=== PATIENT | female | born 1985 | race Caucasian/White ===

== ENCOUNTER 2021-05-06 13:04 | Emergency (ER) | payer OTHER, SELFPAY ==
[2021-05-06 13:13] VITALS: BP 120/90; PULSE 81; RESP 16; TEMP 37.4; O2SAT 100
--- NOTE | 2021-05-06 13:28 | ED.GENADULT ---
HPI - General Adult General Chief complaint: Upper Respiratory Infection Stated complaint: sore throat/nasal congestion Source: patient Mode of arrival: ambulatory Limitations: no limitations History of Present Illness HPI narrative: 35 y/o female. PMH includes: None reported. Presents to [facility] today with acute complaints of nasal congestion, purulent nasal discharge, throat irritation, as well as bilateral otalgia for the past 1 week. She reports her manifestations to have been worsening despite home OTC remedies. She denies fever, chills, myalgia. Non-productive cough, without dyspnea, wheezing. No N/V. Client had been Covid tested at work 48 hours ago with negative results, and declines need for additional viral testing today. She is concerned that she may need antibiotic due to her length of ongoing symptoms, and is leaving for family vacation in 48 hours. She is without additional acute complaints of illness upon exam. Related Data Allergies Allergy/AdvReac Type Severity Reaction Status Date / Time No Known Allergies Allergy Verified 02/19/21 08:16 Review of Systems Review of Systems: Narrative: CONSTITUTIONAL: Denies fever, chills, sweats. EYES: Denies visual changes, redness, discharge. ENT: Positive rhinorrhea, congestion, otalgia. No sore throat. CARDIOVASCULAR: Denies chest pain, palpitations, edema. RESPIRATORY: Non-productive cough. No dyspnea, wheezing, cough GASTROINTESTINAL: Denies abdominal pain, nausea, vomiting, diarrhea. GENITOURINARY: Denies dysuria, hematuria, abnormal discharge SKIN: Denies rash or itching. MUSCULOSKELETAL: Denies acute back pain, joint pain, or myalgia. NEUROLOGIC: Denies numbness, or focal weakness. PSYCHIATRIC: Denies anxiety or depression. All systems reviewed & are unremarkable except as noted in HPI and below [facility] Past Medical History Medical History High cholesterol Surgical History Surgical History [place] teeth removed Family History Family History Father Hypertension Grandparent Cancer of kidney Ovarian cancer Social History Social History Smoking status: Never smoker Alcohol intake: current Drinks per week: 3 Exam Narrative: Exam Narrative: GENERAL: This is a well-nourished, well-developed patient, in no apparent distress. HEAD: normocephalic, atraumatic. EYES: PERRL. Sclera clear/white. EARS: External ears normal. Auditory canals are mildly erythematous, LT > burdensome than RT, without drainage. TMs normal without perforation. NOSE: External nose normal. There is purulent nasal discharge and crusting to exterior nares. Nares are patent and without obstruction. THROAT: Mucous membranes moist. Posterior pharynx erythematous, no exudates. NECK: Neck supple, non-tender without lymphadenopathy, masses or thyromegaly. CARDIOVASCULAR: Regular rate and rhythm without murmurs, gallops, or rubs. RESPIRATORY: Upper airway Rhonchi, cleared with cough. Breath sounds equal bilaterally. No wheezes or rales. GASTROINTESTINAL: Abdomen soft, non-tender, nondistended. No guarding. SKIN: warm, intact with no suspicious lesions or rash, good texture and turgor. NEURO: No obvious focal neurologic abnormalities. Steady gait. Course Vital Signs Vital signs: Vital Signs Temperature 37.4 C 05/06/21 13:13 Pulse Rate 81 05/06/21 13:13 Respiratory Rate 16 05/06/21 13:13 Blood Pressure 120/90 05/06/21 13:13 Pulse Oximetry 100 05/06/21 13:13 Temperature 37.4 C 05/06/21 13:13 Pulse Rate 81 05/06/21 13:13 Respiratory Rate 16 05/06/21 13:13 Blood Pressure 120/90 05/06/21 13:13 Pulse Oximetry 100 05/06/21 13:13 Medical Decision Making MDM Narrative Medical decision making narrative: -Symptom
== END 2021-05-06 13:34 | disposition home or self-care (01) ==
PROVIDERS: Emergency Provider Nurse Practitioner Adult Health
DX: J06.9 Acute upper respiratory infection, unspecified (principal); E78.00 Pure hypercholesterolemia, unspecified
CPT/HCPCS: 99213; G0463

== ENCOUNTER → 2021-10-08 17:06 | Outpatient (NON) | payer OTHER, SELFPAY ==
[2020-05-24 18:31] LABS: SARS-CoV-2 RNA PCR Negative
== END | disposition home or self-care (01) ==
PROVIDERS: PCP Family Medicine; Visit Provider Family Medicine
DX: R68.89 Other general symptoms and signs (principal); Z20.828 Contact with and (suspected) exposure to other viral communicable diseases
CPT/HCPCS: 87635; C9803; U0003

== ENCOUNTER 2022-12-20 10:03 | Outpatient (CLI) | payer OTHER, SELFPAY ==
[2022-12-20 11:09] LABS: Alanine Aminotransferase 21 U/L (6-35); Alkaline Phosphatase 76 U/L (38-126); Anion Gap 6 mmol/L (8-16); Aspartate Amino Transferase 21 U/L (14-36); Bilirubin,Total 0.4 mg/dL (0.2-1.3); Blood Urea Nitrogen 11 mg/dL (7-17); Calcium 8.8 mg/dL (8.4-10.2); Carbon Dioxide 25 mmol/L (22-30); Chloride 108 mmol/L (98-107); Cholesterol 193 mg/dL (0-200); Estimated Glomerular Filt Rate > 60; Glucose 96 mg/dL (65-110); HDL Direct 50 mg/dL; Sodium 139 mmol/L (137-145); Triglycerides 79 mg/dL (<150)
[2022-12-20 11:19] LABS: LDL Cholesterol Direct 97 mg/dL
== END 2022-12-20 10:04 | disposition home or self-care (01) ==
LOC: ANHLAB 10:04
PROVIDERS: PCP Family Medicine; Visit Provider Family Medicine
DX: Z51.81 Encounter for therapeutic drug level monitoring (principal); Z79.899 Other long term (current) drug therapy; E66.3 Overweight
CPT/HCPCS: 36415; 80053; 80061

== ENCOUNTER 2024-01-17 09:13 | Outpatient (CLI) | payer OTHER, SELFPAY ==
--- NOTE | ~2024-01-17 | US_ITS ---
EXAMINATION: US OB <= 14 weeks fetus DATE: 01/17/2024 09:34 INDICATION: with inconclusive viability TECHNIQUE: Real-time pelvic ultrasound utilizing transabdominal probe was performed. The greta babcock radiologist was not present for the study. COMPARISON: None. FINDINGS: The uterus measures 10.4 x 6.0 x 6.0 cm. There is an intrauterine gestational sac. A yolk sac and fe salina pole are identified. The crown rump length measures 2.3 cm, which correlates with an estimated ge stational age of 9 weeks and 0 days. heart motion is identified measuring 171 beats per minute (bpm) by M-mode Doppler. The right ovary measures 2.6 x 1.9 x 1.9 cm. The left ovary measures 2.7 x 2.4 x 1.7 cm. There is no free fluid in the pelvis. IMPRESSION: 1. Single living fetus with heart rate of 171 bpm. 2. Gestational age by ultrasound of 9 weeks 0 day(s) +/- 6 day(s) with ultrasound estimated date of delivery (MINA) of 08/21/2024. Reviewed, dictated and finalized at location L. IMPRESSION: 1. Single living fetus with heart rate of 171 bpm. 2. Gestational age by ultrasound of 9 weeks 0 day(s) +/- 6 day(s) with ultraso und estimated date of delivery (MINA) of 08/21/2024.
== END 2024-01-17 09:14 ==
LOC: GOSHIMG 09:14
PROVIDERS: PCP Family Medicine; Visit Provider Nurse Practitioner Family
DX: O36.80X0 Pregnancy with inconclusive fetal viability, not applicable or unspecified (principal); Z3A.09 9 weeks gestation of pregnancy
CPT/HCPCS: 76801

== ENCOUNTER 2024-02-10 09:01 | Outpatient (CLI) | payer OTHER, SELFPAY ==
[2024-02-10 13:28] LABS: Hematocrit 41.1 % (37.0-47.0); Hemoglobin 13.1 g/dL (12.0-15.0); Mean Corpuscular HGB Conc 31.9 g/dl (32-36); Mean Corpuscular Hemoglobin 29.8 pg (26-34); Mean Corpuscular Volume 93.6 fl (80-100); Mean Platelet Volume 10.8 fl (7.4-10.4); Platelet Count Result 240 k/mm3 (150-375); Red Blood Count 4.39 M/mm3 (4.2-5.4); Red Cell Distribution Width 12.4 % (11.5-14.5); White Blood Count 9.8 K/mm3 (4.5-10.0)
[2024-02-10 13:36] LABS: Alanine Aminotransferase 20 U/L (6-35); Albumin Level 4.2 g/dL (3.5-5.1); Alkaline Phosphatase 70 U/L (38-126); Anion Gap 7 mmol/L (4-12); Aspartate Amino Transferase 29 U/L (14-36); Bilirubin,Total 0.4 mg/dL (0.2-1.3); Blood Urea Nitrogen 8 mg/dL (7-17); Calcium 9.5 mg/dL (8.4-10.2); Carbon Dioxide 24 mmol/L (22-30); Chloride 105 mmol/L (98-107); Cholesterol 222 mg/dL (0-200); Estimated Glomerular Filt Rate > 60; Glucose 82 mg/dL (65-110); HDL Direct 69 mg/dL; Potassium 3.9 mmol/L (3.4-5.0); Sodium 136 mmol/L (137-145); Triglycerides 115 mg/dL (<150)
[2024-02-10 13:46] LABS: LDL Cholesterol Direct 125 mg/dL
[2024-02-10 14:10] LABS: HIV 1/2 Ab P24 Ag Result Negative (Negative)
[2024-02-10 14:17] LABS: Appearance Urine Cloudy (Clear); Bacteria Urine 1+ /hpf; Bilirubin Urine Negative (Negative); Blood Urine Negative (Negative); Color Urine Yellow (Yellow); Glucose Urine UA Negative (Negative); Ketones Urine Trace mg/dL (Negative); Leukocyte Esterase Ur Negative LEU/UL (Negative); Need Manual Microscopic Reviewed; Nitrate Urine Negative (Negative); Non Pathogenic Casts 0-2; Protein Urine Negative (Negative); RBC Urine 0-2 /hpf (0-2); Specific Grav Ur 1.023 (1.001-1.035); Squamous Epithelial Cell Urine Moderate /hpf (Few); pH Urine 6.5 (5.0-9.0)
[2024-02-10 14:30] LABS: Add Urine Microscopic? YES
[2024-02-10 15:11] LABS: Hepatitis B Surface Antigen Negative (Negative); Rubella IgG Antibody 5.4 IU/ML
[2024-02-10 15:23] LABS: Hepatitis C Virus Antibody Negative (Negative)
[2024-02-10 18:21] LABS: Thyroid Stimulating Hormone 0.892 uIU/mL (0.465-4.680)
[2024-02-13 15:10] LABS: Rapid Plasma Reagin Non-Reactive (NonReactive)
[2024-02-13 17:32] LABS: Hemoglobin 13.3 g/dL (11.7-15.5); MCV 92.3 fL (80.0-100.0); RDW 12.4 % (11.0-15.0); Red Blood Cell Count 4.44 Mill/uL (3.80-5.10)
== END 2024-02-10 09:02 | disposition home or self-care (01) ==
PROVIDERS: Nurse Practitioner Family; PCP Family Medicine; Visit Provider Family Medicine
DX: Z34.90 Encounter for supervision of normal pregnancy, unspecified, unspecified trimester (principal); Z3A.00 Weeks of gestation of pregnancy not specified; E66.3 Overweight; Z79.899 Other long term (current) drug therapy
CPT/HCPCS: 36415; 80053; 80061; 81001; 83021; 84443; 85027; 86592; 86703; 86762; 86787; 86803; 86850; 86900; 86901; 87086; 87340; G0432

== ENCOUNTER 2024-05-09 07:37 | Outpatient (CLI) | payer OTHER, SELFPAY ==
[2024-05-09 08:59] LABS: Basophils Percent Auto 0.4 % (0.2-1.2); Eosinophils Absolute Auto 0.5 K/mm3 (0-0.3); Eosinophils Percent Auto 5.1 % (0-4.4); Hematocrit 35.4 % (37.0-47.0); Hemoglobin 11.9 g/dL (12.0-15.0); Immature Granulocyte Absolute 0.03 K/mm3 (0.00-0.031); Immature Granulocyte Percent A 0.3 % (0-0.5); Lymphocytes Absolute Auto 1.75 K/mm3 (0.9-3.2); Lymphocytes Percent Auto 16.7 % (18.3-44.2); Mean Corpuscular HGB Conc 33.6 g/dl (32-36); Mean Corpuscular Hemoglobin 30.2 pg (26-34); Mean Corpuscular Volume 89.8 fl (80-100); Mean Platelet Volume 9.9 fl (7.4-10.4); Monocytes Absolute Auto 0.7 K/mm3 (0.1-0.6); Monocytes Percent Auto 6.4 % (2.6-8.5); Neutrophils Absolute Auto 7.5 K/mm3 (1.3-6.7); Neutrophils Percent Auto 71.1 % (45.5-73.1); Platelet Count Result 214 k/mm3 (150-375); Red Blood Count 3.94 M/mm3 (4.2-5.4); Red Cell Distribution Width 12.7 % (11.5-14.5); White Blood Count 10.5 K/mm3 (4.5-10.0)
[2024-05-09 09:09] LABS: Glucose 1 Hour PP 50gm Dose 140 mg/dL
[2024-05-11] MEDS: RHO(D) IMMUNE GLOBULIN 300 MCG/2 ML SYRINGE IM (11:20)
== END 2024-05-09 07:38 | disposition home or self-care (01) ==
LOC: ANHLAB 07:39
PROVIDERS: PCP Family Medicine; Visit Provider Nurse Practitioner Family
DX: Z34.00 Encounter for supervision of normal first pregnancy, unspecified trimester (principal)
CPT/HCPCS: 36415; 82947; 85025; 85461; 86850; 86900; 86901; 90384; 96372; J2790

== ENCOUNTER 2024-05-11 07:19 | Outpatient (CLI) | payer OTHER, SELFPAY ==
[2024-05-11 07:51] LABS: Glucose Fasting Gestational 87 mg/dL (>/=95)
[2024-05-11 09:33] LABS: Glucose 1 Hour Gest 159 mg/dL (>/=180)
[2024-05-11 10:12] LABS: Glucose 2 Hour Gest 121 mg/dL (>/= 155)
[2024-05-11 11:28] LABS: Glucose 3 Hour Gest 100 mg/dL (>/=140)
== END 2024-05-11 07:20 | disposition home or self-care (01) ==
LOC: ANHLAB 07:21
PROVIDERS: PCP Family Medicine; Visit Provider Nurse Practitioner Family
DX: O99.810 Abnormal glucose complicating pregnancy (principal); Z3A.00 Weeks of gestation of pregnancy not specified
CPT/HCPCS: 36415; 82951; 82952; 90384; 96372; J2790

== ENCOUNTER 2024-06-21 15:43 | Outpatient (CLI) | payer OTHER, SELFPAY ==
[2024-06-21 16:11] LABS: Basophils Percent Auto 0.3 % (0.2-1.2); Eosinophils Absolute Auto 0.4 K/mm3 (0-0.3); Eosinophils Percent Auto 4.2 % (0-4.4); Hemoglobin 11.4 g/dL (12.0-15.0); Immature Granulocyte Absolute 0.04 K/mm3 (0.00-0.031); Immature Granulocyte Percent A 0.4 % (0-0.5); Lymphocytes Absolute Auto 1.98 K/mm3 (0.9-3.2); Lymphocytes Percent Auto 19.5 % (18.3-44.2); Mean Corpuscular HGB Conc 32.6 g/dl (32-36); Mean Corpuscular Hemoglobin 29.8 pg (26-34); Mean Corpuscular Volume 91.4 fl (80-100); Mean Platelet Volume 10.2 fl (7.4-10.4); Monocytes Absolute Auto 0.8 K/mm3 (0.1-0.6); Monocytes Percent Auto 8.3 % (2.6-8.5); Neutrophils Absolute Auto 6.8 K/mm3 (1.3-6.7); Neutrophils Percent Auto 67.3 % (45.5-73.1); Platelet Count Result 226 k/mm3 (150-375); Red Blood Count 3.83 M/mm3 (4.2-5.4); Red Cell Distribution Width 12.7 % (11.5-14.5); White Blood Count 10.1 K/mm3 (4.5-10.0)
[2024-06-21 17:04] LABS: HIV 1/2 Ab P24 Ag Result Negative (Negative)
[2024-06-22 07:33] LABS: Rapid Plasma Reagin Non-Reactive (NonReactive)
== END 2024-06-21 15:44 | disposition home or self-care (01) ==
LOC: ANHLAB 15:45
PROVIDERS: PCP Family Medicine; Visit Provider Obstetrics & Gynecology
DX: Z34.90 Encounter for supervision of normal pregnancy, unspecified, unspecified trimester (principal); Z3A.00 Weeks of gestation of pregnancy not specified
CPT/HCPCS: 36415; 85025; 86592; 86703; G0432

== ENCOUNTER 2024-08-14 12:09 | Outpatient (RCR) | payer OTHER, SELFPAY ==
--- NOTE | ~2024-08-14 | US_ITS ---
EXAMINATION: US OB limited DATE: 08/14/2024 13:18 INDICATION: Advanced maternal age. Third trimester. TECHNIQUE: Real-time ultrasound of the pelvis was performed. COMPARISON: Ultrasound 01/17/2024 FINDINGS: There is a single fetus in vertex presentation. The placenta is on the right. heart rate is 16 5 beats per minute (bpm). The amniotic fluid index is 8.1 cm, which is normal. The fetus demonstrates bilateral hydroceles. IMPRESSION: 1. Single living fetus in vertex presentation. Reviewed, dictated and finalized at location A.
[2024-08-14 13:25] VITALS: BP 116/70; PULSE 81
== END 2024-11-12 23:59 | disposition home or self-care (01) ==
LOC: ANHOBOP 12:09
PROVIDERS: PCP Family Medicine; Visit Provider Obstetrics & Gynecology
DX: O09.513 Supervision of elderly primigravida, third trimester (principal); Z3A.00 Weeks of gestation of pregnancy not specified
CPT/HCPCS: 59025; 76815

== ENCOUNTER 2024-08-15 08:27 | Inpatient (IN) | payer OTHER, SELFPAY ==
[2024-08-15] VITALS (171 sets, daily range): BP systolic 87–132; BP diastolic 34–92; PULSE 30–155; RESP 16–20; TEMP 36.4–37.1; O2SAT 83–100; BMI 33.2
[2024-08-15 09:17] LABS: Basophils Percent Auto 0.5 % (0.2-1.2); Eosinophils Absolute Auto 0.4 K/mm3 (0-0.3); Eosinophils Percent Auto 4.4 % (0-4.4); Hemoglobin 11.4 g/dL (12.0-15.0); Immature Granulocyte Absolute 0.03 K/mm3 (0.00-0.031); Immature Granulocyte Percent A 0.4 % (0-0.5); Lymphocytes Absolute Auto 1.83 K/mm3 (0.9-3.2); Lymphocytes Percent Auto 21.6 % (18.3-44.2); Mean Corpuscular HGB Conc 32.6 g/dl (32-36); Mean Corpuscular Volume 89.1 fl (80-100); Mean Platelet Volume 10.6 fl (7.4-10.4); Monocytes Absolute Auto 0.7 K/mm3 (0.1-0.6); Neutrophils Absolute Auto 5.5 K/mm3 (1.3-6.7); Neutrophils Percent Auto 65.1 % (45.5-73.1); Platelet Count Result 205 k/mm3 (150-375); Red Blood Count 3.93 M/mm3 (4.2-5.4); White Blood Count 8.5 K/mm3 (4.5-10.0)
[2024-08-15] MEDS: LACTATED RINGERS 1,000 ML 999 ML IV CONT (09:25)
--- NOTE | 2024-08-15 09:31 | WPDANESEPP ---
Anes - Eval Pre Procedure Procedure: Labor epidural Date/Time: 08/15/24 09:31 Surgeon: Rashaun Preop Diagnosis: Pain during labor Pre Op Diagnosis: labor Patient Data Age: 38 Gender: F Height: Weight: Last Vital Signs Pulse 111 H 08/15/24 09:31 BP 121/34 L 08/15/24 09:31 Allergies Allergy/AdvReac Type Severity Reaction Status Date / Time No Known Allergies Allergy Verified 08/14/24 08:26 Home Medications Medication Instructions Recorded Confirmed Type vit no.95-ferrous 1 tablet PO DAILY 08/15/24 08/15/24 History fumarate 28 mg-folic acid 800 mcg tablet () Laboratory Tests 08/15/24 09:09 WBC 8.5 K/mm3 (4.5-10.0) RBC 3.93 L M/mm3 (4.2-5.4) Hgb 11.4 L g/dL (12.0-15.0) Hct 35.0 L % (37.0-47.0) MCV 89.1 fl (80-100) MCH 29.0 pg (26-34) MCHC 32.6 g/dl (32-36) RDW 14.0 % (11.5-14.5) Plt Count 205 k/mm3 (150-375) MPV 10.6 H fl (7.4-10.4) Immature Gran % (Auto) 0.4 % (0-0.5) Neut % (Auto) 65.1 % (45.5-73.1) Lymph % (Auto) 21.6 % (18.3-44.2) [place] % (Auto) 8.0 % (2.6-8.5) Eos % (Auto) 4.4 % (0-4.4) Baso % (Auto) 0.5 % (0.2-1.2) Lymph # (Auto) 1.83 K/mm3 (0.9-3.2) [place] # (Auto) 0.7 H K/mm3 (0.1-0.6) Eos # (Auto) 0.4 H K/mm3 (0-0.3) Baso # (Auto) 0.0 K/mm3 (0.0-0.1) Abs Immat Gran (auto) 0.03 K/mm3 (0.00-0.031) Absolute Neuts (auto) 5.5 K/mm3 (1.3-6.7) Absolute Nucleated RBC 0.000 K/mm3 (0.0-0.012) Nucleated RBC % 0.0 % (0.0-0.2) RPR Pending HIV 1&2 Ab/P24 Ag 4thGn Pending Patient hx anesthesia problems: none Family hx anesthesia problems: none Results Review: All pre-operative results and documents have been reviewed as part of the pre-operative evaluation. [facility] Past Medical History Medical History High cholesterol Surgical History Surgical History [place] teeth removed Family History Family History Father Hypertension Grandparent Ovarian cancer Cancer of kidney Sibling Testicular cancer Social History Social History Smoking status: Never smoker Alcohol intake: current Drinks per week: 3 Substance use: never Lack of Transportation: No Lack of Food: Never True Current Housing: I Have Housing Concerned About Future Housing: No Difficulty Paying Gas/Electric Bills: No Difficulty Paying for Meds: No Currently Unemployed: No Education: Master's Degree or Higher Difficulty w/ Childcare or Family Care: No Living arrangements: alone Occupation/Education: occupation Gender identity (if verbalized by the patient): Female Sexual Orientation (if Verbalized by the Patient): Straight or Heterosexual Spiritual care concerns: No Exam Day of Procedure 08/15/24 09:31 Patient weight: overweight Heart: regular rate and rhythm Lungs: clear to auscultation Airway: Mallampati scale class II Neurological: alert and oriented
--- NOTE | 2024-08-15 09:34 | LDADM ---
This patient, Geovany Ascencio, was admitted to Labor/Delivery/Recovery 105 on 08/15/24 at 08:27. Plans for labor, pain management and were discussed with patient. Patient/family oriented to hospital policies and general routines including ID bracelet, bed and alarms, visiting hours, pain management, procedures, bathroom and other care routines, personal items, smoking policy, room service/diet and guest tray routines, security routines, and visiting hours. Patient/Family are encouraged to report perceived risks to care and to ask questions if they do not understand what they are told or what they should do. See OBIX for further documentation.
[2024-08-15] MEDS: LACTATED RINGERS 1,000 ML 125 ML IV CONT (10:05)
[2024-08-15 10:16] LABS: HIV 1/2 Ab P24 Ag Result Negative (Negative)
[2024-08-15 10:56] LABS: Rapid Plasma Reagin Non-Reactive (NonReactive)
--- NOTE | 2024-08-15 12:39 | PM.IMHP ---
H&P: HPI History of Present Illness Date/Time: 08/15/24 12:39 Chief Complaint: Contractions Narrative: 38-year-old G0 at 39 weeks presented to Labor and delivery with complaints of contractions regular since 5:45 a.m.. On admission to Labor and delivery she was 5 cm lindsey every 3-4 minutes. Denies leaking of fluid. course significant for advanced maternal age. Labs reviewed. GBS negative. Rh negative. Review of Systems Review of Systems: All systems reviewed & are unremarkable except as noted in HPI and below Constitutional: Constitutional: Reports no additional constitutional complaints and Denies headache(s) Eyes: Eyes: Denies spots in vision ENT: Reports system reviewed and no additional complaints, except as documented and Denies headache(s) Cardiovascular: Cardiovascular: Denies chest pain and Denies dyspnea Respiratory: Respiratory: Denies dyspnea Gastrointestinal: Gastrointestinal: Reports no additional gastrointestinal complaints Genitourinary: Genitourinary: Reports amenorrhea Musculoskeletal: Musculoskeletal: Reports no additional musculoskeletal complaints Integumentary/Breasts: Skin/Breast: Denies breast mass and Denies rash Neurologic: Denies headache(s) Psychiatric: Psychiatric: Reports no additional psychiatric complaints [facility] Past Medical History Medical History (Updated 08/15/24 @ 12:41 by Dylan Rodney MD) High cholesterol Surgical History Surgical History [place] teeth removed Family History Family History Father Hypertension Grandparent Ovarian cancer Cancer of kidney Sibling Testicular cancer Social History Social History Smoking status: Never smoker Second hand tobacco smoke exposure: No Alcohol intake: current Drinks per week: 3 Substance use: never Do You Feel Safe in your Home?: Yes Lack of Transportation: No Lack of Food: Never True Current Housing: I Have Housing Concerned About Future Housing: No Difficulty Paying Gas/Electric Bills: No Difficulty Paying for Meds: No Currently Unemployed: No Education: Master's Degree or Higher Difficulty w/ Childcare or Family Care: No Living arrangements: alone Occupation/Education: occupation Gender identity (if verbalized by the patient): Female Sexual Orientation (if Verbalized by the Patient): Straight or Heterosexual Spiritual care concerns: No Meds Home Medications and Allergies Home Medications Medication Instructions Recorded Confirmed Type vit no.95-ferrous 1 tablet PO DAILY 08/15/24 08/15/24 History fumarate 28 mg-folic acid 800 mcg tablet () Allergies Allergy/AdvReac Type Severity Reaction Status Date / Time No Known Allergies Allergy Verified 08/14/24 08:26 Vital Signs Vital Signs - 24 hr 08/15/24 08:50 08/15/24 09:00 08/15/24 09:30 Temperature Pulse Rate 69 81 111 H Respiratory Rate Blood Pressure 114/81 116/75 121/34 L Pulse Oximetry Oxygen Delivery 08/15/24 09:30 08/15/24 09:30 08/15/24 09:32 Temperature Pulse Rate 69 70 Respiratory Rate Blood Pressure 125/80 110/74 Pulse Oximetry Oxygen Delivery 08/15/24 09:54 08/15/24 09:59 08/15/24 10:00 Temperature Pulse Rate 75 Respiratory Rate Blood Pressure 127/83 Pulse Oximetry 100 100 Oxygen Delivery 08/15/24 10:03 08/15/24 10:04 08/15/24 10:06 Temperature Pulse Rate 81 73 70 Respiratory Rate Blood Pressure 132/89 131/70 122/75 Pulse Oximetry 100 Oxygen Delivery 08/15/24 10:09 08/15/24 10:12 08/15/24 10:14 Temperature Pulse Rate 71 83 Respiratory Rate Blood Pressure 121/78 124/83 Pulse Oximetry 98 100 Oxygen Delivery 08/15/24 10:15 08/15/24 10:18 08/15/24 10:19 Temperature
--- NOTE | 2024-08-15 12:41 | P.PNOB_ITS ---
OB - PN: Subj Subjective Date/time seen: 08/15/24 Cat 1, tracing, fht 125-130, cervix 7/90/-1 AROM small amount blood tinged fluid. OB - PN: Obj Data Labs 08/15/24 09:09 Labs: Laboratory Results - last 24 hr 08/15/24 09:09 WBC 8.5 RBC 3.93 L Hgb 11.4 L Hct 35.0 L MCV 89.1 MCH 29.0 MCHC 32.6 RDW 14.0 Plt Count 205 MPV 10.6 H Immature Gran % (Auto) 0.4 Neut % (Auto) 65.1 Lymph % (Auto) 21.6 [place] % (Auto) 8.0 Eos % (Auto) 4.4 Baso % (Auto) 0.5 Lymph # (Auto) 1.83 [place] # (Auto) 0.7 H Eos # (Auto) 0.4 H Baso # (Auto) 0.0 Abs Immat Gran (auto) 0.03 Absolute Neuts (auto) 5.5 Absolute Nucleated RBC 0.000 Nucleated RBC % 0.0 RPR Non-reactive HIV 1&2 Ab/P24 Ag 4thGn Negative Blood Type O Negative Antibody Screen Negative OB - PN A/P Time Spent With Patient Time: Total time spent is greater than 50% in coordination of care (as documented) at patient's floor/unit and/or counseling patient:
[2024-08-15] MEDS: OXYTOCIN 30 UNITS/NS 500 ML 30 UNITS/500 ML BAG 999 UNITS IV CONT (15:53)
[2024-08-15] MEDS: OXYTOCIN 30 UNITS/NS 500 ML 30 UNITS/500 ML BAG 125 UNITS IV CONT (16:28)
--- NOTE | 2024-08-15 16:50 | PC.NURSE ---
Consulted with patient to assess needs related to . was taken to the nursery after delivery for some brief monitoring and then went back out to mom. We placed baby skin to skin. We reviewed working with the infant, supporting breast, protecting her nipples with an optimal deep latch, good positioning. Encouraged understanding the benefits of skin to skin, responding to feeding cues, milk production. Reviewed positioning and alignment, supporting breast, off-centered (asymmetrical latch) and leading with the chin with big, open, wide gape. latched optimally to the [left] breast in [cradle] position. We discussed cross cradle hold when she isn't hooked up to so many things. Education given to the mother of how to visualize the suckling (with good rocking jaw motion). The was [able] to maintain latch off and on. We switched to the left breast in football position for a few minutes before dad took baby to do skin to skin so mom could eat. Mother voiced understanding of the education shared, to call for assistance if the infant does not latch or if there is discomfort with . Reported to the Primary RN.
--- NOTE | 2024-08-15 20:10 | OBPPTRN ---
Patient transferred to post room #111 via wheelchair @ 2009. Support person present. Oriented to unit, room, information board, rooming in, admission packet and security measures. Patient verbalizes understanding.
[2024-08-16] VITALS (9 sets, daily range): BP systolic 108–118; BP diastolic 59–74; PULSE 71–102; RESP 12–20; TEMP 36.7–36.9; O2SAT 97–100
[2024-08-16] MEDS: IBUPROFEN 600 MG TABLET PO ×2 (04:20→13:38)
[2024-08-16 05:25] LABS: Hemoglobin 11.3 g/dL (12.0-15.0)
[2024-08-16] MEDS: MULTIVIT/MIN/PREN/FOL AC/IRON TABLET 1 TAB PO (07:18)
[2024-08-16] MEDS: DOCUSATE SODIUM 100 MG CAPSULE PO ×2 (07:18→17:44)
--- NOTE | 2024-08-16 08:37 | PC.NURSE ---
[id number] Introductions were made, then consulted with patient to assess needs related to . Discussed with mother her?plans to feed?her infant and the?experience so far. When RN entered room, mother had latched baby to her left breast with nipple shield, was only used for 1-2 mins, RN had mother re-latch with out the shield. Baby is a tongue sucker but was able to open up wide and latch well, no pain felt by mother, swallows heard and seen. Baby was very content, hands were relaxed and open after feeding. Nipple shield has been used for 2 entire feedings through the night, RN advised mother if she continued to use the shield would need to start using breast pump to protect milk supply, should try to latch without if possible. Baby is now going to have circumcision done. Resources provided for inpatient and outpatient services with the feeding sheet, mom/baby guide and name written on the communication board. Mother voiced understanding of information and will call if there is a request for assistance. Reported to the Primary RN.
--- NOTE | 2024-08-16 09:44 | P.PNOB_ITS ---
OB - PN: Subj Subjective Date/time seen: 08/16/24 09:44 Patient comments: pain well controlled, tolerating diet and other (Decreasing lochia.) baby status: doing well and nursing well [place] feeding status: exclusively breast feeding OB - PN: Obj Data Labs 08/16/24 03:57 Labs: Laboratory Results - last 24 hr 08/15/24 08/16/24 09:09 03:57 Hgb 11.3 L Hct 35.0 L RPR Non-reactive HIV 1&2 Ab/P24 Ag 4thGn Negative Blood Type O Negative O Negative Antibody Screen Negative TNP Screen Negative Baby's Blood Type O pos Baby's YOLANDA Negative Doses of RhIg Required 1 OB - PN A/P Plan day: 1 Plan: routine care Comments: Patient doing well. Time Spent With Patient Time: Total time spent is greater than 50% in coordination of care (as documented) at patient's floor/unit and/or counseling patient: Exam Psych: Affect: normal affect Other: Abd: fundus firm below umbilicus, nontender Perineum: healing Ext: nontender
--- NOTE | 2024-08-16 09:46 | PM.OBPRVD ---
OB - Vaginal Delivery Note Procedure Delivery date: 08/16/24 Intrapartal Events: Decelerations (episode of 2 minute deceleration, rapid progress, non reoccuring) Induction method: None Delivery augmentation: Rupture of Membranes Delivery monitor: External FHT Route of delivery: Episiotomy description: None Laceration Description: Perineal - 2nd Degree Delivery repair: vicryl (3.o v) Quantitative Blood Loss (ml): 250 Narrative: She was admitted in active labor. She continued to progress in labor she had an epidural placed on request. She then had assisted rupture of membranes with minimal fluid blood tinged. She did have an episode of a 2 minute bradycardic episode which resolved. At that time she was rapidly progressing. She dilated to complete. She pushed for approximately an hour delivered a male infant direct OP. Nose and mouth suction with the bulb at the time of delivery was noted to have meconium. With gentle traction the shoulders and rest the was delivered was placed on maternal abdomen the cord was doubly clamped and cut and was evaluated at the warmer. Pitocin started. Placenta delivered spontaneously and intact. And edge of the placental membranes appeared to be slightly avulsed. Placenta intact. The lower uterine segment was weaved no membranes obtain uterine tone was good. She sustained a second-degree perineal laceration repaired with 3-0 Vicryl. [place] Baby Date of : 08/15/24 Time of : 15:49 Gestational Age by Date: 39 gender: Male Weight (pounds): 7 Weight (ounces): 14 presentation: vertex position: Other (Direct OP) Placenta delivery description: Spontaneous Cord Vessel Description: 3 Vessels score one minute: 8 score five minutes: 9
--- NOTE | 2024-08-16 11:08 | WPDANLDPN2 ---
Anes-Prog Note L&D Date/Time: 08/16/24 11:08 Comfortable throughout: labor and delivery Neuraxial method: epidural Epidural/Spinal procedure site: clean & non-tender Neuro status: Neuro function grossly intact. Cardiovascular status: normal Respiratory status: normal Airway patency: baseline Mental status: baseline Post-Op hydration status: normal Vital Signs: Last Vital Signs Temp 36.9 C 08/16/24 07:30 Pulse 79 08/16/24 07:30 Resp 18 08/16/24 07:30 BP 113/59 L 08/16/24 07:30 Pulse Ox 100 08/16/24 07:30 O2 Del Method Room Air 08/16/24 07:30 Pain score (VAS): 1 I/O: Intake & Output 08/15/24 08/16/24 08/16/24 23:59 07:59 15:59 Intake Total 500 Output Total 495 Balance 5 Post-procedural complaints: none Patient feedback: Patient satisfied with anesthetic care.
[2024-08-16] MEDS: RHO(D) IMMUNE GLOBULIN 300 MCG/2 ML SYRINGE IM (13:31)
[2024-08-16] MEDS: MEASLES,MUMPS,RUBELLA VACCINE 0.5 ML VIAL SUB-Q (13:32)
[2024-08-16] MEDS: WITCH HAZEL 40 PADS 1 PAD TOPICAL (17:44)
[2024-08-17] MEDS: IBUPROFEN 600 MG TABLET PO (04:17)
[2024-08-17] MEDS: DOCUSATE SODIUM 100 MG CAPSULE PO (07:38)
[2024-08-17] MEDS: MULTIVIT/MIN/PREN/FOL AC/IRON TABLET 1 TAB PO (07:38)
[2024-08-17] MEDS: BENZOCAINE 20% AER SPR (*SP) 56 GM CAN 1 SPRAY TOPICAL (07:39)
[2024-08-17] MEDS: WITCH HAZEL 40 PADS 1 PAD TOPICAL (07:39)
--- NOTE | 2024-08-17 07:43 | PM.OBDSVD ---
DS: Admitting Diagnosis Discharge Date 08/17/24 Admitting Diagnosis active labor OB - DS: Summary OB Procedures : Ultrasound OB Procedures Intrapartum: Spontaneous Vag Delivery OB Procedures: : None Peripartum Data Delivery Method: Natural Vaginal Laceration Description: Perineal - 2nd Degree Episiotomy description: None complications: none Status at Discharge Functional status at discharge: independent ambulation Overall status at discharge: patient is back to baseline Time Spent with Patient Time attestation: Total time spent providing and/or coordinating discharge services: Time spent: Less than 30 minutes Exam Const: General: cooperative Orientation/consciousness: oriented to person, oriented to place and oriented to time HENMT: Face/Nose/Sinus: Normal external nose present Eyes: General: appearance normal, both eyes and all related structures Resp: Effort & Inspection: normal respiratory effort and able to speak in complete sentences Cardio: Rate: regular rate GI: Inspection: normal to inspection : External Female Exam: normal external appearance Skin: General skin exam: normal color Neuro: General: oriented to person, oriented to place and oriented to time Extrem: General: normal to inspection and no calf tenderness Psych: Appearance: grossly normal Mental Status: mental status grossly normal DS: Data Data Completed and Pending Labs on day of discharge: Labs from last 24 hours 08/16/24 03:57 Blood Type O Negative Antibody Screen TNP Screen Negative Baby's Blood Type O pos Baby's YOLANDA Negative Doses of RhIg Required 1 Discharge Plan Discharge Attending physician on discharge: Dylan Rodney Discharging Clinician: Elina Womack Anticipated Discharge Date/Time: 08/17/24 07:46 Patient Disposition: Home, Self-Care Activity: may shower and pelvic rest Diet: as tolerated Discharge Instructions: Education: Mom and Baby Guide Given to: Mother Follow-Up: Call your delivering provider's office for an appointment to be seen in: call and make an appointment Mom and baby should come to the [facility] for the follow-up appointment. Appointment Date/Time: August 18, 2024 at 10:00 am What to expect at your follow-up visit: Physical Assessment Call [phone] if you are unable to keep your appointment time. BREAST CARE: * Wear a snug supportive bra. * For engorgement discomfort: Breast Feeding: * Apply warm moist washcloths * Express milk as needed to relieve engorgement * Wear loose clothing Bottle Feeding: * May apply ice packs * For sore nipples: * Identify correct latch-on * Apply warm moist washcloths before and after nursing * Air dry nipples after nursing * May apply Lansinoh cream to nipples EPISIOTOMY/PERINEAL CARE: * Until bleeding stops, use your edelmira bottle after urinating * Change your pad frequently throughout the day * You may take sitz baths several times a day (fill your bathtub with warm water and soak for 20 minutes.) Do NOT bathe in the water * No tub baths until seen by your physician - You may shower ACTIVITY: * Rest as much as possible. * Do not exercise or lift anything heavier than your baby (such as laundry or other children.) * Avoid stairs or driving as much as possible. * Do not put anything into the vagina. No douching, tampons, or sexual activity until seen by physician. NOTIFY PHYSICIAN IF YOU HAVE ANY QUESTIONS OR IF ANY OF THE FOLLOWING SYMPTOMS OCCUR: * If your episiotomy or incision becomes red, swollen, or more painful than what you have experienced in the hospital. * If your vaginal bleeding becomes foul smelling. * If your vaginal bleeding becomes more heavy than a period or if your bleeding changes from pink to bright red. However, you may pass an occa
[2024-08-17 08:25] VITALS: BP 115/71; PULSE 72; RESP 16; TEMP 36.8; O2SAT 99
--- NOTE | 2024-08-17 10:10 | PC.NURSE ---
Consulted with mother concerning needs and she shared her ability to independently latch infant with the nipple shield. She has been supplementing through the night and not trying to put baby to breast, so we encouraged her to attempt every feeding if that is her desire. We also discussed pumping with the nipple shield and for stimulation if baby doesn't breastfeed. Her breast pump has been shipped so encouraged hand expression if doesn't breastfeed. Mother is feeding appropriately for growth of and understands stimulating infant to eat if needed. has had appropriate feedings (breast and bottle) in the last 24 hours meets the outcomes for weight, output, blood sugar and jaundice at this time. Reinforced understanding of milk production, transition of milk, signs of adequate intake, transition of stool, prevention/relief of engorgement, plugged ducts, mastitis, responsive watching for feeding cues, the different methods of stimulating to breastfeed 1-3 hours after the start of the last feeding, community resources, and when to call a provider using the resource of the feeding sheet along with the mom and baby guide, is baby getting enough and common issues handouts. Mother voiced understanding of the information shared, is confident to continue effectively her at home, when to call for assistance, denies any additional assistance or education at this time. Reported to the Primary RN.
[2024-08-18 10:14] VITALS: BP 126/74; PULSE 80; RESP 18; TEMP 36.7; O2SAT 99
== END 2024-08-17 12:28 | disposition home or self-care (01) | DRG 807 ==
LOC: ANHLDR 09:12 → ANHOBPP 23:40 → ANHOB2 08-16 07:54
PROVIDERS: Admitting Provider Obstetrics & Gynecology; PCP Family Medicine; Visit Provider Obstetrics & Gynecology
DX: O26.893 Other specified pregnancy related conditions, third trimester (principal); Z37.0 Single live birth; Z3A.39 39 weeks gestation of pregnancy; O70.1 Second degree perineal laceration during delivery; Z31.82 Encounter for Rh incompatibility status; O36.8330 Maternal care for abnormalities of the fetal heart rate or rhythm, third trimester, not applicable or unspecified
CPT/HCPCS: 36415; 85014; 85018; 85025; 85461; 86592; 86703; 86850; 86900; 86901; 90384; 90710; A9270; G0432; J2590; J2790; J2795; J7120

== ENCOUNTER 2024-11-21 08:03 | Outpatient (CLI) | payer OTHER, SELFPAY ==
--- NOTE | ~2024-11-21 | XR_ITS ---
XR knee RT 3V Ordering provider: Amber Cheung, [employer] History: . M25.561 - Pain in right knee . Comparison: None. FINDINGS: BONES: No acute fracture or dislocation. JOINT SPACES: Normal. SOFT TISSUES: Normal. IMPRESSION: No acute osseous abnormality right knee. Reviewed, dictated and finalized at location A. RANCE UNDERWRITING ASSISTANT
== END 2024-11-21 08:04 | disposition home or self-care (01) ==
PROVIDERS: PCP Family Medicine; Visit Provider Nurse Practitioner
DX: M25.561 Pain in right knee (principal)
CPT/HCPCS: 73562